=== PATIENT | male | born 1950 | race Caucasian/White ===

== ENCOUNTER 2025-02-18 13:31 | Inpatient (IN) | payer MEDICARE ==
[~2025-02-18] VITALS: Ht 170.2 cm; Wt 88.3 kg
[2025-02-18 14:10] LABS: BASO # 0.1 10^3/uL (0.0-0.2); BASO % 0.9 % (0.0-1.0); EOS # 0.5 10^3/uL (0.0-0.5); EOS % 5.0 % (0.0-3.0); LYMPH # 2.3 10^3/uL (1.5-5.0); LYMPH % 24.5 % (24.0-44.0); MONO # 0.6 10^3/uL (0.0-0.8); MONO % 6.4 % (2.0-8.0); NEUTROPHILS # 5.8 10^3/uL (1.5-8.5); NEUTROPHILS % 62.8 % (36.0-66.0); PLATELET COUNT, AUTOMATED 339 10^3/uL (150-450)
[2025-02-18] MEDS: ONDANSETRON 4MG 2ML VIAL IV ONE (14:37)
[2025-02-18 14:46] LABS: CALCIUM LEVEL 9.6 MG/DL (8.3-10.6); CARBON DIOXIDE LEVEL 22.0 MMOL/L (20-31); CHLORIDE LEVEL 108.0 MMOL/L (98-107); CREATININE FOR GFR 1.28 MG/DL (0.70-1.30); GLOMERULAR FILTRATION RATE 59.5 (>42); MAGNESIUM LEVEL 1.6 MG/DL (1.8-2.4); POTASSIUM SERUM 4.9 MMOL/L (3.5-5.1); SODIUM LEVEL 145.0 MMOL/L (136-145)
[2025-02-18 14:48] LABS: FREE T4 0.96 NG/DL (0.89-1.76)
[2025-02-18] MEDS ORDERED: ISOVUE-370 76% 100 ML VIAL As Ordered ONE (14:55)
[2025-02-18] MEDS: MAG SULF 1GM/100ML (MAG RUN) 1 GM in IV 1 EA IV ONE (16:15)
[2025-02-18] MEDS ORDERED: LOTR52CA PO ×2 (18:58)
[2025-02-18] MEDS ORDERED: ATOR80TA59 PO (18:58)
[2025-02-18] MEDS ORDERED: ALLO100T PO (18:58)
[2025-02-18] MEDS ORDERED: CITA40TA7 PO (18:58)
[2025-02-18] MEDS ORDERED: ATEN50TA2 PO (18:58)
[2025-02-18] MEDS ORDERED: SEMA1PEN2 INJ (18:58)
[2025-02-18] MEDS ORDERED: TAMS1CAP17 PO (18:58)
[2025-02-18] MEDS ORDERED: OMEP-173 PO (18:58)
[2025-02-18] MEDS ORDERED: JARD1TAB3 PO (18:58)
[2025-02-18] MEDS ORDERED: METF500T13 PO (18:58)
[2025-02-18] MEDS ORDERED: HOME MED LIST COMPLETE! XX SCH (19:00)
[2025-02-18] MEDS ORDERED: DEXTROSE 50% 50 ML SYRINGE IV PRN (19:35)
[2025-02-18] MEDS ORDERED: GLUCOSE 4 GM CHEW PO PRN (19:35)
[2025-02-18] MEDS ORDERED: GLUCAGON INJ 1 MG VIAL SC PRN (19:35)
[2025-02-18] MEDS ORDERED: ACETAMINOPHEN 325 MG TAB PO PRN (19:35)
[2025-02-18] MEDS ORDERED: PILL CUTTER 1 EACH XX PRN (20:20)
[2025-02-18] MEDS: LIDOCAINE 5% PATCH TD SCH (20:31)
[2025-02-18] MEDS: TAMSULOSIN 0.4 MG CAP PO SCH (20:31)
[2025-02-18 20:52] VITALS: BP 187/94; TEMP 97; O2SAT 95
[2025-02-18] MEDS ORDERED: hydrALAZINE 20 MG/ML 1 ML VIAL IV ONE (21:20)
[2025-02-18] MEDS: INSULIN LISPRO (NovoLOG) PER UNIT SC SCH (22:00)
[2025-02-18 22:01] VITALS: BP 152/89
[2025-02-18] MEDS: ACETAMINOPHEN 500 MG TAB PO SCH (22:03)
[2025-02-18] MEDS: DICLOFENAC EPOLAMINE 1.3% PATCH TOP SCH (22:04)
[2025-02-19] VITALS (9 sets, daily range): BP systolic 94–173; BP diastolic 53–82; TEMP 97–98.3; O2SAT 93–95
[2025-02-19 07:33] LABS: PLATELET COUNT, AUTOMATED 347 10^3/uL (150-450)
[2025-02-19 08:00] LABS: CALCIUM LEVEL 8.9 MG/DL (8.3-10.6); CARBON DIOXIDE LEVEL 26.0 MMOL/L (20-31); CHLORIDE LEVEL 108.0 MMOL/L (98-107); CREATININE FOR GFR 1.1 MG/DL (0.70-1.30); GLOMERULAR FILTRATION RATE 71.3 (>42); MAGNESIUM LEVEL 2.0 MG/DL (1.8-2.4); POTASSIUM SERUM 4.6 MMOL/L (3.5-5.1); SODIUM LEVEL 146.0 MMOL/L (136-145)
[2025-02-19] MEDS: OMEPRAZOLE 20MG CAP PO SCH (09:38)
[2025-02-19] MEDS: ATORVASTATIN 20 MG TAB PO SCH (09:38)
[2025-02-19] MEDS: HEPARIN SOD 5000 UNITS/ML 1 ML VIAL/SYRINGE SC SCH (09:39)
[2025-02-19] MEDS: BENAZEPRIL 20 MG TAB PO SCH (09:39)
[2025-02-19] MEDS: amLODIPine 5 MG TAB PO SCH (09:40)
[2025-02-19] MEDS: INSULIN LISPRO (NovoLOG) PER UNIT SC SCH (09:43)
[2025-02-19] MEDS: LR 1,000 ML IV ONE (11:41)
[2025-02-20] VITALS (11 sets, daily range): BP systolic 90–176; BP diastolic 54–90; TEMP 97–98.6; O2SAT 94–96
[2025-02-20 06:02] LABS: PLATELET COUNT, AUTOMATED 321 10^3/uL (150-450)
[2025-02-20 06:36] LABS: CALCIUM LEVEL 8.5 MG/DL (8.3-10.6); CARBON DIOXIDE LEVEL 26.0 MMOL/L (20-31); CHLORIDE LEVEL 107.0 MMOL/L (98-107); CREATININE FOR GFR 1.09 MG/DL (0.70-1.30); GLOMERULAR FILTRATION RATE 72.1 (>42); POTASSIUM SERUM 4.2 MMOL/L (3.5-5.1); SODIUM LEVEL 145.0 MMOL/L (136-145)
[2025-02-20] MEDS: LR 1,000 ML IV ONE (06:56)
[2025-02-20] MEDS ORDERED: PROHANCE 279.3MG/ML 15ML VIAL As Ordered ONE (12:25)
[2025-02-20] MEDS ORDERED: PROHANCE 279.3MG/ML 5ML VIAL As Ordered ONE (12:25)
[2025-02-21 03:07] VITALS: BP 162/84; TEMP 96.9; O2SAT 97
[2025-02-21 06:20] VITALS: BP_SYST 148; BP_SYST 99; BP_DIAS 63; BP_DIAS 75
[2025-02-21 06:31] LABS: PLATELET COUNT, AUTOMATED 328 10^3/uL (150-450)
[2025-02-21 06:53] LABS: CALCIUM LEVEL 8.9 MG/DL (8.3-10.6); CARBON DIOXIDE LEVEL 26.0 MMOL/L (20-31); CHLORIDE LEVEL 108.0 MMOL/L (98-107); CREATININE FOR GFR 1.1 MG/DL (0.70-1.30); GLOMERULAR FILTRATION RATE 71.3 (>42); POTASSIUM SERUM 4.3 MMOL/L (3.5-5.1); SODIUM LEVEL 145.0 MMOL/L (136-145)
[2025-02-21 08:02] VITALS: BP 150/88; TEMP 97; O2SAT 95
[2025-02-21 08:57] VITALS: BP 150/88
[2025-02-21] MEDS ORDERED: NORV5TAB PO (09:35)
[2025-02-21] MEDS ORDERED: HYDR-161 PO (09:35)
== END 2025-02-21 11:19 | disposition home or self-care (01) | DRG 312 ==
LOC: M ED 13:31 → M ED INP 19:35 → M PCU 20:44
PROVIDERS: ADMIT Student in an Organized Health Care Education/Training Program; ATTEND Internal Medicine
PROC: B246ZZZ Ultrasonography of Right and Left Heart (ICD-10-PCS; principal; 2025-02-19)
DX: I95.1 Orthostatic hypotension (principal); E87.0 Hyperosmolality and hypernatremia; E11.22 Type 2 diabetes mellitus with diabetic chronic kidney disease; M10.9 Gout, unspecified; I12.9 Hypertensive chronic kidney disease with stage 1 through stage 4 chronic kidney disease, or unspecified chronic kidney disease; E78.5 Hyperlipidemia, unspecified; K21.9 Gastro-esophageal reflux disease without esophagitis; N40.0 Benign prostatic hyperplasia without lower urinary tract symptoms; E66.9 Obesity, unspecified; M51.360 Other intervertebral disc degeneration, lumbar region with discogenic back pain only; N18.9 Chronic kidney disease, unspecified; F39 Unspecified mood [affective] disorder; Z68.30 Body mass index [BMI] 30.0-30.9, adult; R42 Dizziness and giddiness; M47.812 Spondylosis without myelopathy or radiculopathy, cervical region; M54.9 Dorsalgia, unspecified; R29.6 Repeated falls; Z79.84 Long term (current) use of oral hypoglycemic drugs; Z79.899 Other long term (current) drug therapy; Z85.828 Personal history of other malignant neoplasm of skin; Z87.820 Personal history of traumatic brain injury

== ENCOUNTER → 2025-02-21 | Outpatient (CLI) | payer MEDICARE ==
[~2025-02-21] MED LIST: ALLO100T PO; ATEN50TA2 PO; ATOR80TA59 PO; CITA40TA7 PO; HYDR-161 PO; JARD1TAB3 PO; LOTR52CA PO; METF500T13 PO; NORV5TAB PO; OMEP-173 PO; SEMA1PEN2 INJ; TAMS1CAP17 PO
== END ==
LOC: M EKG 11:28
PROVIDERS: ATTEND Internal Medicine
DX: R55 Syncope and collapse (principal)